=== PATIENT | male | born 1940 | race Caucasian/White ===

== ENCOUNTER → 2017-02-13 | Outpatient (CLI) | payer MEDICARE ==
[~2017-02-13] MED LIST: ADALAT CC30 MG PO; BANOPHEN25 M1 PO; BENADRYL25 MG PO; BUDESONIDE0.25 MG/2 INH; GLUCOPHAGE500 MG PO; GLUCOTROL10 MG PO; LASIX40 MG PO; NEURONTIN300 MG PO; PRINIVIL OR ZES10 MG PO; TOPROL XL25 MG PO; ZOCOR40 MG PO
== END | disposition disaster alternative care site (69) ==
LOC: LGSMG 14:30
DX: R17 Unspecified jaundice (principal)

== ENCOUNTER → 2017-04-23 | Outpatient (CLI) | payer MEDICARE ==
[2017-04-23 16:42] LABS: ANION GAP 9.9 (10.0-19.0); CREATININE 1.6 mg/dL (0.6-1.3); POTASSIUM 3.9 mMol/L (3.7-5.1)
== END | disposition disaster alternative care site (69) ==
LOC: LNHI 16:26
PROVIDERS: Internal Medicine Interventional Cardiology
DX: I48.1 Persistent atrial fibrillation (principal); I27.81 Cor pulmonale (chronic); R60.9 Edema, unspecified

== ENCOUNTER → 2017-05-19 | Outpatient (CLI) | payer MEDICARE ==
[2017-05-19 09:25] LABS: ANION GAP 12.6 (10.0-19.0); CREATININE 1.4 mg/dL (0.6-1.3); POTASSIUM 4.6 mMol/L (3.7-5.1)
== END | disposition disaster alternative care site (69) ==
LOC: LNHI 09:10
PROVIDERS: Internal Medicine Interventional Cardiology
DX: R60.9 Edema, unspecified (principal); I27.81 Cor pulmonale (chronic); I48.1 Persistent atrial fibrillation

== ENCOUNTER → 2017-05-20 | Outpatient (CLI) | payer MEDICARE ==
--- NOTE | ~2017-05-20 | PUL ---
PATIENT'S NAME: KRISTINA VALENZUELA [facility] AGE: 76 Y [address] ROOM: [place] [id number] LOCATION: [facility] ADMIT DATE: 05/20/2017 Pulmonary DISCHARGE DATE: FAMILY PHYSICIAN: LAMONTE MELO MD ATTENDING PHYSICIAN: CINDY POMPA NAME OF PROCEDURE: Pulmonary Function Test DATE OF PROCEDURE: May 20, 2017 TECH: BERNIE Marcial REASON FOR EXAM: COPD RESULTS: 1. FVC was 2 liters which is 49% of predicted and low, FEV1 was 1.67 liters which is 56% of predicted and low, and FEV1/FVC was 84% and normal. The flow volume curve did not reveal any significant airflow limitation. After bronchodilator administration FVC increased to 2.1 liters which is a 5% increase, and FEV1 increased to 1.74 liters which is a 4% increase. FEV1/FVC was 83%. 2. DLCO and adjusted DLCO were 4.3 which is 21% of predicted and low. 3. Total lung capacity was 3.05 liters which is 49% of predicted and low, and residual volume was 0.65 liters which is 26% of predicted and low. PHYSICIAN INTERPRETATION: The patient has no airflow limitation and no significant bronchodilator response. His diffusion capacity is severely low. There is evidence of moderately severe restrictive lung disease. LELE WARD MD RFMatthew/kai /[id number] dtt: 05/23/17 1228 , LELE WARD dtd: 05/22/17 0845
== END | disposition disaster alternative care site (69) ==
LOC: GRTH 08:59
DX: J44.9 Chronic obstructive pulmonary disease, unspecified (principal); I27.81 Cor pulmonale (chronic); J98.4 Other disorders of lung; R60.9 Edema, unspecified

== ENCOUNTER → 2017-06-11 | Outpatient (CLI) | payer MEDICARE | END | disposition disaster alternative care site (69) | LOC: GRAD 10:46 | DX: J98.4 Other disorders of lung (principal); I70.90 Unspecified atherosclerosis; R59.0 Localized enlarged lymph nodes; R09.1 Pleurisy ==